=== PATIENT | female | born 2005 | race Caucasian/White ===

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

== ENCOUNTER 2025-02-28 17:57 | Outpatient (REF) | payer MEDICAID, SELFPAY ==
[2025-02-28 21:14] LABS: Lab Add On Test DONE
[2025-03-02 12:12] LABS: Chlamydia Result Negative (Negative); GC Result Negative (Negative)
[2025-03-02 12:22] LABS: Chlamydia Result Negative (Negative); GC Result Negative (Negative)
== END 2025-02-28 17:58 | disposition home or self-care (01) ==
LOC: LBN 17:57
PROVIDERS: PCP Family Medicine; Visit Provider Family Medicine
DX: Z11.3 Encounter for screening for infections with a predominantly sexual mode of transmission (principal); Z20.2 Contact with and (suspected) exposure to infections with a predominantly sexual mode of transmission
CPT/HCPCS: 87491; 87591